=== PATIENT | female | born 1990 | race Caucasian/White ===

== ENCOUNTER 2016-12-13 18:21 | Emergency (ER) | payer MEDICAID, OTHER ==
[~2016-12-13] VITALS: Ht 160 cm; Wt 50.0 kg
[2016-12-13 18:32] VITALS: Ht 160 cm; Wt 50.0 kg
--- NOTE | 2016-12-13 21:31 | RADRPT ---
PROCEDURE: US OB. CLINICAL INDICATION: Vaginal bleeding TECHNIQUE: Transabdominal views of the pelvis were obtained. COMPARISON: No prior studies are available for comparison. FINDINGS: There is a single intrauterine gestation with a CRL measuring 4.1 cm, corresponding to a gestational age of 11 weeks and 0 days. The heart rate is noted at 163 bpm. There are multiple hypoechoic fluid collections adjacent to the gestational sac, measuring up to 1.6 cm, consistent with subchorionic hemorrhage. The ovaries are not visualized. There is no free fluid. RPTAT: AA IMPRESSION: Single live intrauterine with an estimated gestational age of 11 weeks and 0 days, based o n ultrasound measurements. Multiple areas of subchorionic hemorrhage. Close follow-up is recommended. .Jono Crawley MD, Date Time Electronically viewed and signed by .Jono Crawley MD, on 12/13/2016 21:30 .S/
--- NOTE | 2016-12-13 22:28 | ERD ---
ER Documentation Chief Complaint Date/Time DATE: 12/13/16 TIME: 22:26 Chief Complaint vag bleed since 3pm. +cramping, 10 weeks HPI This is a 26-year-old female started having some light vaginal spotting onset around 3 or 4 PM today. She is having some mild cramping that has since resolved. Patient states she is around 10 weeks . She was having some mild low back cramps as well which is resolved. No vomiting diarrhea shortness of breath chest pain palpitations. She is currently again she has no pain and is having some mild spotting ROS All systems reviewed and are negative except as per history of present illness. PMhx/Soc History of Surgery: No Anesthesia Reaction: No Hx Neurological Disorder: No Hx Respiratory Disorders: No Hx Cardiac Disorders: No Hx Psychiatric Problems: No Hx Miscellaneous Medical Probl: No Hx Alcohol Use: No Hx Substance Use: No Hx Tobacco Use: No Smoking Status: Never smoker FmHx Family History: No coronary disease Physical Exam Vitals Vital Signs Date Time Temp Pulse Resp B/P Pulse Ox O2 Delivery O2 Flow Rate FiO2 12/13/16 18:32 98.6 77 18 113/61 100 Physical Exam Const: Well-developed, well-nourished Head: Atraumatic, normocephalic Eyes: Normal Conjunctiva, PERRLA, EOMI, normal sclera, no nystagmus ENT: Normal External Ears, Nose and Mouth, moist mucus membranes. Neck: Full range of motion. No meningismus, no lymphadenopathy. Resp: Clear to auscultation bilaterally, no wheezing, rhonchi, rales Cardio: Regular rate and rhythm, no murmurs, S1 S2 present Abd: Soft, mild diffuse pelvic tenderness, non distended. Normal bowel sounds, no guarding or rebound, no pulsitile abdominal masses or bruits Skin: No petechiae or rashes, no ecchymosis , no maculopapular rash Back: No midline or flank tenderness Ext: No cyanosis, or edema, FROM x 4, normal inspection, neurovascularly intact x 4 Neur: Awake and alert, STR 5/5 x 4, sensation intact x 4, no focal findings, cerebellum intact Psych: Normal Mood and Affect Results 24 hrs Laboratory Tests Test 12/13/16 19:58 Beta HCG, Quantitative 517981.0mIU/ml Procedures/MDM PROCEDURE: US OB. CLINICAL INDICATION: Vaginal bleeding TECHNIQUE: Transabdominal views of the pelvis were obtained. COMPARISON: No prior studies are available for comparison. FINDINGS: There is a single intrauterine gestation with a CRL measuring 4.1 cm, corresponding to a gestational age of 11 weeks and 0 days. The heart rate is noted at 163 bpm. There are multiple hypoechoic fluid collections adjacent to the gestational sac , measuring up to 1.6 cm, consistent with subchorionic hemorrhage. The ovaries are not visualized. There is no free fluid. RPTAT: AA IMPRESSION: Single live intrauterine with an estimated gestational age of 11 weeks and 0 days, based on ultrasound measurements. Multiple areas of subchorionic hemorrhage. Close follow-up is recommended. .Jono Crawley MD, Date Time Electronically viewed and signed by .Jono Crawley MD, on 12/13/2016 21: 30 .S/ CC: NACHO CORNEJO DO Patient was given a copy of her labs and ultrasound. Told her to have vaginal bleeding precautions and told home care as well and signs and symptoms were to return Departure Diagnosis: Primary Impression: Threatened miscarriage Condition: Stable Patient Instructions: Possible Miscarriage (Threatened ) NACHO CORNEJO DO December 13, 2016 22:28
[2016-12-13 22:42] VITALS: BP 111/61; PULSE 72; RESP 16; TEMP 98.4
== END 2016-12-13 22:44 | disposition home or self-care (01) ==
LOC: FTE 18:21
DX: O20.0 Threatened abortion (principal); Z3A.11 11 weeks gestation of pregnancy
CPT/HCPCS: 76801; 84702; 86900; 86901; Z7502

== ENCOUNTER 2017-06-03 15:26 | Outpatient (CLI) | payer MEDICAID ==
[~2017-06-03] VITALS: Ht 152.4 cm; Wt 64.3 kg
--- NOTE | 2017-06-03 16:05 | RADRPT ---
PROCEDURE: Biophysical profile CLINICAL INDICATION: distress. Premature rupture of membranes. TECHNIQUE: Color and coffman-scale ultrasound images of an intrauterine gestation were obtained. COMPARISON: None FINDINGS: A single live intrauterine gestation is identified in cephalic position with an estimated hear t rate of 174 beats per minute. The placenta is located anteriorly and has a grade 01. The cervix is obscured by head shadows. No evidence of abruption identified. MORIS is 19.1 cm. movement 2/2. tone 2/2. breathing movement 2/2. Qualitative AFV 2/2 Total biophysical profile 03/15 IMPRESSION: 03/15 biophysical profile. RPTAT: AA .Bill Curiel MD, Date Time Electronically viewed and signed by .Bill Curiel MD, MD on 06/03/2017 16:05 .P/
--- NOTE | 2017-06-03 16:09 | RADRPT ---
PROCEDURE: US OB. CLINICAL INDICATION: Premature rupture of membranes. TECHNIQUE: Multiple sonographic images of the pelvis were obtained. The images were reviewed on a PACS workstation. COMPARISON: December 13, 2016 FINDINGS: There is a single live intrauterine gestation. Cardiac activity is present with 159 beats per minut e. There is a cephalic presentation. Measurements were made in order to determine age. The results are as follows: BPD =8.1 cm = 32 weeks 5 days HC =29.5 cm = 32 weeks 4 days AC =35.0 cm = 39 weeks 0 days FL =6.8 cm = 35 weeks 0 days Estimated gestational age of approximately 34 weeks 6 days. The estimated date of delivery is July 09, 2017. The EFW = 2961 g . The placenta is anteriorly and has a grade 01. There is no evidence for an abruption. IMPRESSION: Single live intrauterine gestation of approximately 34 weeks 6 days. The estimated date of delivery is July 09, 2017 . The estimated date of delivery based upon the earliest available ultrasound i s July 04, 2017 Discrepancy between head measurements and body/femur measurements with measurements measuring betwee n 2 and 6 weeks less than bodies/femur measurements. RPTAT: AA .Bill Curiel MD, MD Date Time Electronically viewed and signed by .Bill Curiel MD, MD on 06/03/2017 16:09 .P/
--- NOTE | 2017-06-03 17:29 | PN ---
Triage Information Date/Time Reason for visit: SROM Weeks of Gestation 36+ /Para 2/1 Diabetes: none Hypertention: none Objective Heart Rate: 140's Contractions: None Results/Medications Results 24 hrs Laboratory Tests Test 06/03/17 16:30 Membranes Rupture NEGATIVE Disposition: Discharge Assessment/Plan Negative ROM plus MORIS WNL --->precautions discussed --->Return in 2 days for NST/BPP MAEVE CALLAHAN M.D. Jun 03, 2017 17:29
[2017-06-03 17:42] VITALS: BMI 27.7
[2017-06-03 17:44] VITALS: BP 105/60; PULSE 90; RESP 20; Ht 152.4 cm; Wt 64.3 kg
[2017-06-03] MEDS ORDERED: PREN-93 PO (17:46)
--- NOTE | 2017-06-03 17:50 | TRIAGE ---
OB Triage Datetime Report Generated by CPN: 06/03/2017 17:50 Datetime: 06/03/2017 17:40 Maternal Assessment Level of Consciousness: Fully Conscious DTR's/Clonus: DTRs 2+; No Clonus Headache: Denies Blurred Vision: No Respiratory Effort: Unlabored; Regular Rhythm; Equal Expansion Breath Sounds, Left: Clear and Equal Breath Sounds, Right: Clear and Equal Nausea/Vomiting: Denies RUQ Epigastric Pain: Denies Facial Edema: None Fall Risk Assessment History of Falling: (0) No Secondary Diagnosis: (0) No Ambulatory Aid: (0) Bedrest/Nurse Assist IV Therapy: (0) No Gait: (0) Normal/Bedrest/Immobile Mental Status: (0) Oriented to Own Ability Fall Score: 0 Fall Risk Score Definition: No Risk: No action required Datetime: 06/03/2017 17:39 Stage of : OB Triage Assessment Type: Triage Maternal Assessment Level of Consciousness: Fully Conscious DTR's/Clonus: DTRs 2+; No Clonus Headache: Denies Blurred Vision: No Respiratory Effort: Unlabored; Regular Rhythm; Equal Expansion Breath Sounds, Left: Clear and Equal Breath Sounds, Right: Clear and Equal Nausea/Vomiting: Denies RUQ Epigastric Pain: Denies Lower Extremities Edema: None Degree: None Upper Extremities Edema: None Degree: None Facial Edema: None Temperature Route: Axillary Fall Risk Assessment History of Falling: (0) No Secondary Diagnosis: (0) No Ambulatory Aid: (0) Bedrest/Nurse Assist IV Therapy: (0) No Gait: (0) Normal/Bedrest/Immobile Mental Status: (0) Oriented to Own Ability Fall Score: 0 Fall Risk Score Definition: No Risk: No action required Pain Assessment Pain Scale: 0 Pain Presence: None/Denies Vaginal Exam Dilatation (cms): 0.0 Effacement (%): 0 Station: -3 Exam By: CURRY BAUM Pool: Negative Datetime: 06/03/2017 17:34 Time of Arrival: 06/03/2017 15:20 EGA: 35.4 Arrived By: Ambulatory Arrived From: Home Chief Complaint: R/O SROM Movement: Present Contractions: Irregular Rupture of Membranes: Unsure Vaginal Bleeding: None Vaginal Discharge: Denies Recent Sexual Intercouse: Denies Abdominal Trauma: Not Applicable Patient Complaints: None Time Provider Notified: 06/03/2017 15:36 Provider Notified: DR. MCNEIL Initial Plan: SVE NST Datetime: 06/03/2017 17:25 Stage of : OB Triage
== END 2017-06-03 17:50 | disposition home or self-care (01) ==
LOC: OBT 15:26 → L-D 15:28 → OBT 17:50
PROVIDERS: ATTEND Obstetrics & Gynecology
DX: O42.913 Preterm premature rupture of membranes, unspecified as to length of time between rupture and onset of labor, third trimester (principal); Z3A.36 36 weeks gestation of pregnancy
CPT/HCPCS: 76815; 76818; 84112; Z7500; G0463

== ENCOUNTER 2017-06-06 12:41 | Outpatient (CLI) | payer MEDICAID ==
[~2017-06-06] VITALS: Ht 152.4 cm; Wt 64.1 kg
[~2017-06-06 12:41] MED LIST: PREN-93 PO
--- NOTE | 2017-06-06 13:08 | RADRPT ---
PROCEDURE: OB ultrasound for biophysical profile CLINICAL INDICATION: Rupture of membranes. TECHNIQUE: Multiple sonographic images of the pelvis were obtained. Transabdominal view of the gr avid uterus are available for review. The images were reviewed on a PACS workstation. COMPARISON: 06/03/2017. FINDINGS: breathing movement = 2/2 tone = 2/2 motion = 2/2 Quantitative amniotic fluid volume = 2/2 MORIS = 11.3 cm Single live intrauterine with cardiac activity at 144 beats per minute. There is a anterior placenta without previa or abruption. IMPRESSION: 1. Single living intrauterine gestation in cephalic position. 2. Biophysical profile = 8/8. 3. MORIS = 11.3 cm. RPTAT: AACC Physician oRmán Date Time Electronically viewed and signed by Physician Román on 06/06/2017 13:08 /
[2017-06-06 13:35] VITALS: BP 118/63; PULSE 96; RESP 18; Ht 152.4 cm; Wt 64.1 kg
--- NOTE | 2017-06-06 15:13 | TRIAGE ---
OB Triage Datetime Report Generated by CPN: 06/06/2017 15:13 Datetime: 06/06/2017 14:18 Labor Evaluation Frequency: X2 Monitor Mode: External Duration (sec)2399: 60-80 Quality: Mild Pattern: Normal: <= 5 Contractions in 10 Minutes Resting Tone [place]: Relaxed Heart Rate FHR Baseline Rate: 140 Monitor Mode: External US FHR Baseline Changes: No Baseline Change Variability: Moderate 6-25 bpm Accelerations: 15X15 Decelerations: None Category: Category I Pain Assessment Pain Scale: 0 Pain Presence: None/Denies Pain Type: N/A Datetime: 06/06/2017 13:26 Stage of : OB Triage Assessment Type: Triage Maternal Assessment Level of Consciousness: Fully Conscious DTR's/Clonus: DTRs 2+; No Clonus Headache: Denies Blurred Vision: No Respiratory Effort: Unlabored; Regular Rhythm; Equal Expansion Breath Sounds, Left: Clear and Equal Breath Sounds, Right: Clear and Equal Nausea/Vomiting: Denies RUQ Epigastric Pain: Denies Facial Edema: None Temperature Route: Axillary Fall Risk Assessment History of Falling: (0) No Secondary Diagnosis: (0) No Ambulatory Aid: (0) Bedrest/Nurse Assist IV Therapy: (0) No Gait: (0) Normal/Bedrest/Immobile Mental Status: (0) Oriented to Own Ability Fall Score: 0 Fall Risk Score Definition: No Risk: No action required Labor Evaluation Frequency: OCCAS Monitor Mode: External Duration (sec)2399: 50-60 Quality: Mild Pattern: Normal: <= 5 Contractions in 10 Minutes Heart Rate FHR Baseline Rate: 150 Monitor Mode: External US Variability: Moderate 6-25 bpm Accelerations: 10X10 Decelerations: None Category: Category I Pain Assessment Pain Scale: 0 Pain Presence: None/Denies Pain Goal: 3 Pain Relief Measures: Comfort Measures Datetime: 06/06/2017 13:25 Arrived By: Ambulatory Arrived From: Home Chief Complaint: F/U ROM, Movement: Present Datetime: 06/06/2017 12:50 Time of Arrival: 06/06/2017 12:50 EGA: 36.0 Arrived By: Ambulatory Arrived From: Home Chief Complaint: F/U ROM PLUS Movement: Present Contractions: Denies/Absent Rupture of Membranes: Unsure Vaginal Bleeding: None Vaginal Discharge: Denies Recent Sexual Intercouse: Denies Abdominal Trauma: Not Applicable Patient Complaints: None Time Provider Notified: 06/06/2017 14:19 Provider Notified: gerald Initial Plan: MONITOR, ROM PLUS, MORIS Datetime: 06/03/2017 17:40 Fall Score: 0 Fall Risk Score Definition: No Risk: No action required Datetime: 06/03/2017 17:39 Fall Score: 0 Fall Risk Score Definition: No Risk: No action required Datetime: 06/03/2017 17:34 EGA: 35.4 Datetime: 06/03/2017 17:16 Labor Evaluation Frequency: IRREG Monitor Mode: External Duration (sec)2399: 40-70 Quality: Mild Pattern: Normal: <= 5 Contractions in 10 Minutes Resting Tone [place]: Relaxed Contraction Comments: PT DENIES UC'S AT THIS TIME Heart Rate FHR Baseline Rate: 155 Monitor Mode: External US Variability: Moderate 6-25 bpm Accelerations: 15X15 Decelerations: None Category: Category I Comments: NST REACTIVE FOR GESTATIONAL AGE
--- NOTE | 2017-06-06 17:04 | PN ---
Triage Information Date/Time Reason for visit: Patient here today follow-up for rule out rupture of membrane Weeks of Gestation 36 weeks \ \ \ \ \ \ \ \ \ \ \ \ \ \ \ \ \ \ \ \ \ \ \ \ \ \ \ \ \ \ \ \ \ \ \ \ \ \ \ \ \ \ \ \ \ \ \ \ \ \ \ \ \ \ \ \ \ \ \ \ \ \ \ \ \ \ \ \ \ \ \ \ \ \ \ \ \ \ \ \ \ \ \ \ \ \ \ \ \ \ \ \ \ \ \ \ \ \ \ \ \ \ \ \ \ \ \ \ \ \ \ \ \ \ \ \ \ \ \ \ \ \ \ \ \ \ \ \ \ \ \ \ \ \ \ \ \ \ \ \ \ \ \ \ \ \ \ \ \ \ \ \ \ \ \ \ \ \ \ \ \ \ \ \ \ \ \ \ \ \ \ \ \ \ \ \ \ \ \ \ \ \ \ \ \ \ \ \ \ \ \ \ \ \ \ \ \ \ \ \ \ \ \ \ \ \ \ \ \ \ \ \ \ \ \ \ \ \ \ \ \ \ \ \ \ \ \ \ \ \ \ \ \ \ \ \ \ \ \ \ \ \ \ \ \ \ \ \ \ \ \ \ \ \ \ \ \ \ \ \ \ \ \ \ \ \ \ \ \ \ \ \ \ \ \ \ \ \ \ \ \ \ \ \ \ \ \ \ \ \ \ \ \ \ \ \ \ \ \ \ \ \ \ \ \ \ \ \ \ \ \ \ \ \ \ \ \ \ \ \ \ \ \ \ \ \ 27 years old history of previous 36 weeks follow-up visit to triage unit for rule out rupture of membrane MORIS today 11.3 from plus negative patient discharged home with follow-up instruction to be seen at the clinic. /Para 1 previous Diabetes: none Hypertention: none Additional information 27 years previous follow-up at triage for rule out premature rupture of membrane rom plus today negative BPP 8 out of 8 MORIS 11.3 recommended follow-up at MD's clinic Objective Vital Signs Date Time Temp Pulse Resp B/P Pulse Ox O2 Delivery O2 Flow Rate FiO2 06/06/17 13:35 98.4 96 18 118/63 Heart Rate: 120's Contractions: None Results/Medications Results 24 hrs Laboratory Tests Test 06/06/17 13:30 Membranes Rupture NEGATIVE Disposition: Discharge Assessment/Plan 27 years history of previous 36 weeks follow-up for suspected rupture of membrane ROM plus negative MORIS 11.3 previous biophysical profile of yesterday 03/15 ROGERIO MCNEIL MD Jun 06, 2017 16:58
== END 2017-06-06 15:05 | disposition home or self-care (01) ==
LOC: OBT 12:41 → L-D 12:43 → OBT 15:05
PROVIDERS: ATTEND Obstetrics & Gynecology
DX: O41.93X0 Disorder of amniotic fluid and membranes, unspecified, third trimester, not applicable or unspecified (principal); Z3A.36 36 weeks gestation of pregnancy
CPT/HCPCS: 76818; 84112; Z7500; G0463

== ENCOUNTER 2017-06-28 09:03 | Inpatient (IN) | payer MEDICAID ==
[~2017-06-28] VITALS: Ht 151.1 cm; Wt 64.2 kg
[2017-06-28] MEDS ORDERED: MISOPROSTOL 200 MCG TAB PR PRN ×2 (09:30→18:00)
[2017-06-28] MEDS ORDERED: OXYTOCIN 30 UNITS/LR 500 ML IV SCH (09:30)
[2017-06-28] MEDS ORDERED: METHYLERGONOVINE 0.2 MG INJ IM PRN ×2 (09:30→18:00)
[2017-06-28] MEDS ORDERED: CEFAZOLIN 2 GM/50 ML (PMX) 50 ML IV SCH (09:30)
[2017-06-28] MEDS ORDERED: CARBOPROST 250 MCG INJ IM PRN ×2 (09:30→18:00)
[2017-06-28] MEDS ORDERED: OXYTOCIN 30 UNITS/LR 500 ML IV PRN ×2 (09:30→18:00)
[2017-06-28 09:52] VITALS: Ht 151.1 cm; Wt 64.2 kg
[2017-06-28] MEDS: LACTATED RINGER'S 1,000 ML IV SCH ×2 (09:53→12:56)
[2017-06-28 09:56] LABS: BASOPHILS % 0.5 % (0.0-2.0); EOSINOPHILS # 0.1 10^3/ul (0.0-0.5); EOSINOPHILS % 1.1 % (0.0-7.0); HEMATOCRIT 39.3 % (37.0-47.0); HEMOGLOBIN 13.1 g/dl (12.0-16.0); LYMPHOCYTES # 1.4 10^3/ul (0.8-2.9); LYMPHOCYTES % 16.3 % (15.0-51.0); MEAN CORPUSCULAR HEMOGLOBIN 29.8 pg (29.0-33.0); MEAN CORPUSCULAR HGB CONC 33.3 g/dl (32.0-37.0); MEAN CORPUSCULAR VOLUME 89.3 fl (82.0-101.0); MONOCYTE # 0.7 10^3/ul (0.3-0.9); MONOCYTES % 8.3 % (0.0-11.0); NEUTROPHIL # 6.1 10^3/ul (1.6-7.5); NEUTROPHILS % 73.3 % (39.0-77.0); PLATELET COUNT 176 10^3/UL (140-415); RED CELL DISTRIBUTION WIDTH 13.1 % (11.5-14.5); WHITE BLOOD COUNT 8.3 10^3/ul (4.8-10.8)
[2017-06-28 10:17] LABS: INR 0.93; PROTIME 12.5 Sec (12.2-14.2)
[2017-06-28 10:18] LABS: PARTIAL THROMBOPLASTIN TIME 27.3 Sec (25.0-35.0)
--- NOTE | 2017-06-28 13:38 | HP ---
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 Rubella: immune RPR/VDRL: Negative GBS Status: Negative HBsAG: Negative OB Admission Exam Physical Exam HEENT: WNL Heart: Rhythm Normal Lungs: Clear, Equal Abdomen: WNL Extremities: Normal Reflexes: Normal Cervical Dilatation: None Membranes: Intact Accelerations: Accelerations Present Decelerations: No Decelerations Varibility: Moderate Contractions on Admission: < 5 Minutes Apart Intensity: Mild Last 72 hours Lab Results CBC & BMP 06/28/17 09:40 OB Assessment/Plan Reason for admission: other (39 weeks 1 day history of previous .) Other plan: 26 years old female , 39 weeks and 1 day pregnan,t history of 1 previous ,admitted to the hospital to undergo repeat , complication of surgery including but not limited to bowel and bladder injury infection hemorrhage wound infection and hematoma discussed with the patient and she would like to proceed with the operation ROGERIO MCNEIL MD Jun 28, 2017 13:38
[2017-06-28] MEDS ORDERED: FENTAnyl 50 MCG/ML VIAL ONE (13:39)
[2017-06-28] MEDS ORDERED: morphine SULFATE/PF (10 MG/10 ML) INJ ONE (13:39)
[2017-06-28] MEDS ORDERED: PHENYLephrine (100 MCG/ML) 5ML SYG ONE (14:00)
[2017-06-28] MEDS ORDERED: ONDANSETRON 4 MG INJ ONE (14:02)
[2017-06-28] MEDS ORDERED: DEXAMETHASONE 4 MG/ML 1 ML INJ ONE (14:03)
[2017-06-28] MEDS ORDERED: EPHEDrine SULFATE 50 MG/5 ML SYG ONE (14:15)
--- NOTE | 2017-06-28 14:55 | OPR ---
Operative Report Planned Procedure Free Text/Dictation 39 weeks history of previous admitted for repeat Procedure date Jun 28, 2017 Procedure(s) Repeat Performed by see signature line Distribution Estimator NEVIN Grier Anesthesiologist: SMITHA MCCABE DO Pre-procedure diagnosis 39 weeks history of previous Anesthesia Type: spinal Post-Procedure Post-procedure diagnosis 39 weeks history of 1 previous Findings Live Baby girl Apgars 8 and 9 Estimated Blood Loss: 600 - 700 mls Specimen(s) none Grafts/Implant(s) none Complication(s) none Pt Condition post procedure: stable Procedure Description Under satisfactory spinal anesthesia patient prepped and draped and placed in supine position. Pfannenstiel incision was made. Incision carried through the subcutaneous tissue. Fascia incised to the length of incision. Rectus muscle divided in midline. Peritoneum exposed and entered to a vertical incision. Exploration of abdomen revealed [gravid uterus at term normal-appearing tubes and ovaries.] Bladder flap was developed. Transverse incision was made in the lower segment of the uterus. Amniotic sac ruptured, [clear amniotic fluid noted. ] Live baby girl was delivered from unengaged vertex.Naso oropharyngeal suction was performed. Baby handed to the team for immediate attention. Patient received 20 units of Pitocin. Placenta delivered manually intact. Uterine cavity cleaned with a wet sponge and drainage established. Uterus closed in 2 layers using Monocryl #1 in continuous fashion. Peritoneal cavity irrigated with warm saline. Sponge needle instrument reported to be correct. Abdominal peritoneum closed with 2-0 chromic catgut continuously. Fascia closed with #1 PDS in a continuous fashion. Subcutaneous tissue irrigated with warm saline and approximated with 2-0 chromic catgut skin closed with N sorb. Estimated blood loss [6-700 cc]. Urine bag containing [200] mL of [clear] urine. Patient tolerated procedure well and transferred to recovery room in good condition. ROGERIO MCNEIL MD Jun 28, 2017 14:55
[2017-06-28] MEDS ORDERED: ONDANSETRON 4 MG INJ IV PRN (15:00)
[2017-06-28] MEDS ORDERED: ZOLPIDEM 5 MG TAB PO PRN (15:00)
[2017-06-28] MEDS ORDERED: NALOXONE (0.4 MG/ML) INJ IV PRN (15:00)
[2017-06-28] MEDS ORDERED: HYDROmorphONE 0.5 MG/0.5 ML SYG IV PRN ×2 (15:00)
[2017-06-28] MEDS ORDERED: DIPHENHYDRAMINE 50 MG INJ IV PRN (15:00)
[2017-06-28] MEDS: KETOROLAC 30 MG INJ IV PRN (15:41)
[2017-06-28] MEDS: OXYTOCIN 30 UNITS/LR 500 ML IV SCH ×2 (17:33→20:55)
[2017-06-28 17:40] VITALS: BP 117/64; PULSE 80; RESP 16
[2017-06-28] MEDS: IBUPROFEN 600 MG TAB PO SCH (18:00)
[2017-06-28] MEDS ORDERED: CEFAZOLIN 1 GM/50 ML (PMX) 50 ML IVPB SCH ×2 (18:00→22:00)
[2017-06-28] MEDS ORDERED: HYDROCODONE/APAP (5/325) TAB PO PRN ×2 (18:00)
[2017-06-28] MEDS ORDERED: LANOLIN 7 GM TUBE TOP PRN (18:00)
[2017-06-28] MEDS ORDERED: OXYCODONE/ACETAMINOPHEN (5/325) TAB PO PRN ×2 (18:00)
[2017-06-28 19:45] VITALS: BP 108/56; PULSE 76; RESP 18
[2017-06-29 00:05] VITALS: BP 114/61; PULSE 79; RESP 19
[2017-06-29] MEDS: OXYTOCIN 30 UNITS/LR 500 ML IV SCH ×4 (01:31→13:33)
[2017-06-29 04:05] VITALS: BP 96/57; PULSE 75; RESP 19
[2017-06-29] MEDS ORDERED: LACTATED RINGER'S 1,000 ML IV SCH (05:10)
[2017-06-29] MEDS: KETOROLAC 30 MG INJ IV PRN ×2 (05:20→12:09)
[2017-06-29] MEDS: IBUPROFEN 600 MG TAB PO SCH ×4 (06:00→17:32)
[2017-06-29 07:40] VITALS: BP 100/58; PULSE 84; RESP 16
[2017-06-29] MEDS: SENNA/DOCUSATE NA (8.6MG/50MG) TAB PO SCH ×2 (08:41→21:34)
--- NOTE | 2017-06-29 09:32 | QN ---
Documentation Comment Post day 1 Afebrile, vital signs are stable, abdomen soft, incision dry, bowel sounds present, lochia moderate, limiting normal, relation encouraged ROGERIO MCNEIL MD Jun 29, 2017 09:32
[2017-06-29 09:47] LABS: BASOPHILS % 0.4 % (0.0-2.0); EOSINOPHILS % 0.3 % (0.0-7.0); HEMATOCRIT 30.8 % (37.0-47.0); HEMOGLOBIN 10.6 g/dl (12.0-16.0); LYMPHOCYTES # 1.4 10^3/ul (0.8-2.9); LYMPHOCYTES % 14.8 % (15.0-51.0); MEAN CORPUSCULAR HEMOGLOBIN 30.2 pg (29.0-33.0); MEAN CORPUSCULAR HGB CONC 34.4 g/dl (32.0-37.0); MEAN CORPUSCULAR VOLUME 87.7 fl (82.0-101.0); MEAN PLATELET VOLUME 10.1 fl (7.4-10.4); MONOCYTE # 0.8 10^3/ul (0.3-0.9); MONOCYTES % 8.3 % (0.0-11.0); NEUTROPHILS % 75.8 % (39.0-77.0); PLATELET COUNT 138 10^3/UL (140-415); RED BLOOD COUNT 3.51 10^6/ul (4.20-5.40); RED CELL DISTRIBUTION WIDTH 12.6 % (11.5-14.5); WHITE BLOOD COUNT 9.2 10^3/ul (4.8-10.8)
[2017-06-29 16:00] VITALS: BP 95/60; PULSE 92; RESP 16
[2017-06-29 20:00] VITALS: BP 99/58; PULSE 91; RESP 19
[2017-06-30] MEDS: IBUPROFEN 600 MG TAB PO SCH ×4 (00:03→17:25)
[2017-06-30 04:30] VITALS: BP 94/59; PULSE 83; RESP 18
[2017-06-30 08:10] VITALS: BP 97/55; PULSE 81; RESP 18
--- NOTE | 2017-06-30 10:03 | QN ---
Documentation Comment Day 2 post Afebrile, abdomen soft. Incision dry. Bowel sounds present. No bowel movement. Extremities normal. Enema recommended ROGERIO MCNEIL MD Jun 30, 2017 10:02
[2017-06-30] MEDS: SENNA/DOCUSATE NA (8.6MG/50MG) TAB PO SCH ×2 (10:22→21:47)
[2017-06-30] MEDS ORDERED: NA PHOSPHATE/BIPHOS 133 ML ENEMA PR ONE (10:30)
[2017-06-30 16:00] VITALS: BP 100/55; PULSE 99; RESP 18
[2017-06-30 20:00] VITALS: BP 93/52; PULSE 89; RESP 19
[2017-07-01] MEDS: IBUPROFEN 600 MG TAB PO SCH ×3 (00:50→11:54)
[2017-07-01 04:35] VITALS: BP 97/52; PULSE 73; RESP 18
[2017-07-01 08:00] VITALS: BP 94/63; PULSE 95; RESP 19
[2017-07-01] MEDS ORDERED: DIPHTH/TET/ACEL PERTUSS (ADULT) 0.5 ML VIAL IM* ONE (09:00)
[2017-07-01] MEDS: SENNA/DOCUSATE NA (8.6MG/50MG) TAB PO SCH (10:08)
--- NOTE | 2017-07-01 14:15 | PD.PPDC ---
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 Condition Patient Condition: Good Activity/Restrictions Activity: Normal Activity May Shower Restrictions: No Exercising No Lifting No Driving No Sexual Activity Nothing in the Vagina No [place] No Tampons, douche Wound/Drain Care Instructions Wound/Drain Care Instructions: Wash with soap and water Keep clean and dry Follow-up Follow-up with Physician: 1, Week/Weeks Provider Information: Post day 3 Post instructions given recommended patient to make appointment to be seen at the clinic in 1 week Return to clinic for COOK DESSERT Instructions: Fever greater than 101 Chills Worsening abdominal pain Excessive Vaginal Bleeding More than 2 pads per hour Unable to tolerate diet OB Instructions: Breast Tenderness Depression Blurried Vision Headache Surgical Instructions: Incisional Drainage Incisional Redness ROGERIO MCNEIL MD Jul 01, 2017 14:15
--- NOTE | 2017-07-01 14:18 | DS ---
Date/Time of Note Date/Time of Note DATE: 07/01/17 TIME: 14:16 Discharge Summary Admission/Discharge Info Admit Date/Time Jun 28, 2017 at 09:03 Discharge Date/Time July 01, 2017 at 1415 Discharge Diagnosis Day 3 post repeat Patient Condition: Good Procedures Repeat Hx of Present Illness 39 weeks history of previous Hospital Course Satisfactory recovery uneventful Home Meds Reported Medications Vit No.124/Iron/FA ( Vitamin Tablet) 1 Each Tablet, 1 EACH PO, TAB 06/03/17 Follow-up Plan Post instructions given recommended patient to make appointment to be seen at the clinic in 1 week Primary Care Provider Time spent on discharge: < 30 minutes ROGERIO MCNEIL MD Jul 01, 2017 14:17
[2017-07-01] MEDS ORDERED: HYDR-906 PO (14:53)
[2017-07-01] MEDS ORDERED: IBUP-1542 PO (14:53)
== END 2017-07-01 16:42 | disposition home or self-care (01) | DRG 766 ==
LOC: L-D 09:03 → PP1 17:19
PROVIDERS: ADMIT Obstetrics & Gynecology; ATTEND Obstetrics & Gynecology
PROC: 10D00Z1 Extraction of Products of Conception, Low, Open Approach (ICD-10-PCS; principal; 2017-06-28 12:30)
DX: O34.211 Maternal care for low transverse scar from previous cesarean delivery (principal); Z37.0 Single live birth; Z3A.39 39 weeks gestation of pregnancy
CPT/HCPCS: 85025; 85610; 85730; 86592; 86850; 86900; 86901; 87340; 90715; 94760; 99464; J0690; J1100; J1885; J2274; J2370; J2405; J2590; J3010; J7120

== ENCOUNTER 2017-08-16 19:15 | Emergency (ER) | END 2017-08-17 00:41 | disposition home or self-care (01) ==